=== PATIENT | male | born 1995 | race Caucasian/White ===

== ENCOUNTER 2017-11-10 13:09 | Emergency (ER) | payer MEDICAID ==
[~2017-11-10] VITALS: Ht 167.6 cm; Wt 67.0 kg
[~2017-11-10 13:09] MED LIST: NO HOME MEDS; UNABLE TO OBTAIN
[2017-11-10 14:06] VITALS: BP 139/86
== END 2017-11-10 14:07 | disposition home or self-care (01) ==
LOC: ER 13:10
DX: S55 Injury of blood vessels at forearm level (principal); Z48.00 Encounter for change or removal of nonsurgical wound dressing; F17.200 Nicotine dependence, unspecified, uncomplicated; F15.10 Other stimulant abuse, uncomplicated; G43.909 Migraine, unspecified, not intractable, without status migrainosus; Z56.0 Unemployment, unspecified; Z59.0 Homelessness; W22.09XD Striking against other stationary object, subsequent encounter
CPT/HCPCS: 99281; A6402

== ENCOUNTER 2018-04-06 11:53 | Emergency (ER) | payer MEDICAID ==
[~2018-04-06] VITALS: Ht 167.6 cm; Wt 65.0 kg
[2018-04-06 16:23] VITALS: BP 141/88
[2018-04-06] MEDS ORDERED: gadopentetate dimeglumine 7.5 MMOL/15 ML syringe ONE (18:49)
== END 2018-04-06 16:24 | disposition home or self-care (01) ==
LOC: ER 11:54
DX: H49.22 Sixth [abducent] nerve palsy, left eye (principal); H53.30 Unspecified disorder of binocular vision; H53.2 Diplopia; S00.03XD Contusion of scalp, subsequent encounter; F15.90 Other stimulant use, unspecified, uncomplicated; Z56.0 Unemployment, unspecified; Z91.030 Bee allergy status; Z91.018 Allergy to other foods; Z91.010 Allergy to peanuts; Z59.0 Homelessness; X58.XXXD Exposure to other specified factors, subsequent encounter
CPT/HCPCS: 70543; 70553; 99284; A9579

== ENCOUNTER 2019-03-20 19:05 | Emergency (ER) | payer MEDICAID ==
[~2019-03-20] VITALS: Ht 167.6 cm; Wt 62.0 kg
[2019-03-20] MEDS ORDERED: diphenhydrAMINE 25mg capsule PO ONE (19:35)
[2019-03-20 20:10] VITALS: BP 127/83
== END 2019-03-20 20:16 | disposition home or self-care (01) ==
LOC: ER 19:06
DX: Z77.098 Contact with and (suspected) exposure to other hazardous, chiefly nonmedicinal, chemicals (principal); L53.8 Other specified erythematous conditions; G43.909 Migraine, unspecified, not intractable, without status migrainosus; F15.90 Other stimulant use, unspecified, uncomplicated; F10.99 Alcohol use, unspecified with unspecified alcohol-induced disorder; Z59.0 Homelessness; Z56.0 Unemployment, unspecified; Y90.9 Presence of alcohol in blood, level not specified
CPT/HCPCS: 99282; Q0163

== ENCOUNTER 2023-08-20 10:12 | Emergency (ER) | payer MEDICAID | END 2023-08-20 11:19 | disposition left against medical advice (07) | LOC: ER 10:13 | DX: M54.9 Dorsalgia, unspecified (principal); Z53.21 Procedure and treatment not carried out due to patient leaving prior to being seen by health care provider ==

== ENCOUNTER 2024-03-16 10:14 | Emergency (ER) | payer MEDICAID ==
[~2024-03-16] VITALS: Ht 170.2 cm; Wt 72.7 kg
[2024-03-16 11:18] LABS: EOSINOPHILS # (AUTO) 0.1 X10'3 (0-0.9); EOSINOPHILS % (AUTO) 1.2 % (0-6); LYMPHOCYTES # (AUTO) 1.9 X10'3 (1.1-4.8); MEAN PLATELET VOLUME 7.9 FL (7.4-10.4); MONOCYTES # (AUTO) 0.4 X10'3 (0-0.9); RED BLOOD COUNT 5.67 X10'6 (4.70-6.10)
[2024-03-16 11:20] LABS: BASOPHILS % (AUTO) 0.6 % (0-1); HEMATOCRIT 49.5 % (42.0-52.0); MEAN CORPUSCULAR HGB CONC 34.3 g/dL (33.0-36.5); MEAN CORPUSCULAR VOLUME 87.3 FL (78-98); MONOCYTES % (AUTO) 7.6 % (2-12); NEUTROPHILS # (AUTO) 2.8 X10'3 (1.8-7.7); NEUTROPHILS % (AUTO) 53.6 % (42-75); PLATELET COUNT 182 X10'3 (140-440); RED CELL DISTRIBUTION WIDTH 12.9 % (11.5-14.5); WHITE BLOOD COUNT 5.2 X10'3 (4.5-11.0)
[2024-03-16 11:23] VITALS: BP 130/90; PULSE 76; RESP 16; TEMP 97.2; O2SAT 100
[2024-03-16 11:32] LABS: ALANINE AMINOTRANSFERASE 28 U/L (12-78); ALBUMIN 4.1 G/DL (3.4-5.0); ALBUMIN/GLOBULIN RATIO 1.2 (1.1-1.5); ALKALINE PHOSPHATASE 44 IU/L (46-116); ANION GAP 6 (8-16); ASPARTATE AMINO TRANSFERASE 16 U/L (10-37); BILIRUBIN,TOTAL 1.5 MG/DL (0.1-1.0); BLOOD UREA NITROGEN 17 MG/DL (7-18); BUN/CREATININE RATIO 21.5 (10.0-20.0); CALCIUM 9.2 MG/DL (8.5-10.1); CHLORIDE 103 MMOL/L (99-107); CREATININE 0.79 MG/DL (0.60-1.10); GLUCOSE 78 MG/DL (70-104); LIPASE 23 U/L (16-77); POTASSIUM 4.2 MMOL/L (3.5-5.1); SODIUM 137 MMOL/L (135-145); TOTAL CARBON DIOXIDE 28.1 MMOL/L (24-32); TOTAL PROTEIN 7.4 G/DL (6.4-8.2); eCRCL 129 ML/MIN; eGFR > 90 ML/MIN
== END 2024-03-16 14:30 | disposition left against medical advice (07) ==
LOC: ER 10:15
DX: K92.0 Hematemesis (principal); R10.12 Left upper quadrant pain; Z53.21 Procedure and treatment not carried out due to patient leaving prior to being seen by health care provider
CPT/HCPCS: 80053; 83690; 85025